=== PATIENT | female | born 1970 | race Caucasian/White ===

== ENCOUNTER 2016-12-05 06:47 | Day surgery (SDC) | payer BC ==
[2016-12-05] MEDS ORDERED: Lactated Ringers 1,000 ML IV SCH (07:00)
[2016-12-05] MEDS ORDERED: Sodium Chloride 0.9% 10 ML Syringe FLUSH PRN (07:00)
[2016-12-05] MEDS ORDERED: Lidocaine 1%/Sod Bicarbonate in NS 8.4% 1 ML Syringe PRN (07:00)
[2016-12-05] MEDS ORDERED: Midazolam 1 MG/ML 2 ML SDV ONE (07:27)
[2016-12-05] MEDS ORDERED: Propofol 200 MG/20 ML SDV ONE (07:27)
[2016-12-05] MEDS ORDERED: fentaNYL 250 MCG/5 ML SDV ONE (07:27)
[2016-12-05] MEDS ORDERED: Rocuronium 50 MG/5 ML Vial ONE (07:29)
[2016-12-05] MEDS ORDERED: Lidocaine 1% 4 ML ONE (07:30)
[2016-12-05] MEDS ORDERED: Scopolamine 1.5 MG Transdermal Patch TRDERM ONE (07:35)
--- NOTE | 2016-12-05 07:38 | PCM.PREANE ---
Preanesthetic Assessment - Procedure Proposed Procedure: Right thyroid lobectomy - Anesthesia/Transfusion/Family Hx Anesthesia History: Prior Anesthesia Reaction Type of Anesthesia Reaction: Excessive Nausea/Vomiting (scopalomine patch ordered ) Family History of Anesthesia Reaction: No Transfusion History: No Prior Transfusion(s) Intubation History: Unknown - Review of Systems General: No Symptoms Pulmonary: Shortness of Breath, Cough, Sputum Cardiovascular: Dyspnea on Exertion Gastrointestinal: No symptoms Neurological: No Symptoms Other: Reports: Thyroid Problems (past thyroidectomy due to nodules 2014) - Physical Assessment NPO Status Date: 12/05/16 NPO Status Time: 16:00 Pulse: 73 O2 Sat by Pulse Oximetry: 97 Respiratory Rate: 16 Blood Pressure: 116/72 Temperature: 36.8 C Height: 1.6 m Weight: 77.111 kg ASA Class: 3 Mental Status: Alert & Oriented x3 Airway Class: Mallampati = 2 Dentition: Reports: Missing Tooth/Teeth (poor dentition ), Caries Thyro-Mental Finger Breadths: 3 Mouth Opening Finger Breadths: 4 ROM/Head Extension: Full Lungs: Normal respiratory effort, Decreased breath sounds (diminished throughout ) Cardiovascular: Regular Rate, Regular Rhythm, No Murmurs - Lab Values: Laboratory Last Values Urine HCG, Qual Negative (NEGATIVE) 12/05/16 07:01 - Allergies Allergies/Adverse Reactions: Allergies Allergy/AdvReac Type Severity Reaction Status Date / Time Penicillins Allergy Mild Anaphylactic Verified 12/01/16 09:39 Shock tramadol Allergy Swelling Verified 12/01/16 09:39 codeine AdvReac Mild Nausea Verified 12/01/16 09:39 - Blood Blood Available: No - Anesthesia Plan Beta Jena: Atenolol (will take own dose) - Acknowledgements Anesthesia Type Planned: General Anesthesia Pt an Appropriate Candidate for the Planned Anesthesia: Yes Alternatives and Risks of Anesthesia Discussed w Pt/Guardian: Yes Pt/Guardian Understands and Agrees with Anesthesia Plan: Yes PreAnesthesia Questionnaire HEENT History: Reports: Allergic Rhinitis, Impaired Vision, Other (See Below) Other HEENT History: wears glasses Cardiovascular History: Reports: High Cholesterol, Hypertension Respiratory History: Reports: COPD Gastrointestinal History: Reports: GERD, Other (See Below) Other Gastrointestinal History: dysphagia Other OB/BYN History: bilateral lobectomy Musculoskeletal History: Reports: Arthritis, Other (See Below) Other Musculoskeletal History: osteopenia Neurological History: Reports: None Psychiatric History: Reports: Depression, Other (See Below) Other Psychiatric History: insomnia Endocrine/Metabolic History: Reports: Hypothyroidism, Other (See Below) Other Endocrine/Metabolic History: thyroid nodule Hematologic History: Reports: None Immunologic History: Reports: None Oncologic (Cancer) History: Reports: None Dermatologic History: Reports: None - Past Surgical History Head Surgeries/Procedures: Reports: None Other HEENT Surgeries/Procedures: partial thyroidectomy GI Surgical History: Reports: EGD Female Surgical History: Reports: Other (See Below) Other Female Surgeries/Procedures: Right breast ductectomy Endocrine Surgical History: Reports: Other (See Below) Other Endocrine Surgeries/Procedures: L thyroid lobectomy Other Musculoskeletal Surgeries/Procedures:: L4-l5 discectomy, laminectomy - SUBSTANCE USE Tobacco Use Within Last Twelve Months: Cigarettes (1/2 pack/ day) Second Hand Smoke Exposure: Yes Days Per Week of Alcohol Use: 1 Number of Drinks Per Day: 0 Total Drinks Per Week: 0 Recreational Drug Use History: No - HOME MEDS Home Medications: Home Meds Atenolol [Tenormin] 50 mg PO DAILY 01/11/14 [History] Hydrochlorothiazide 25 mg PO DAILY 01/11/14 [History] Levothyroxine Sodium [Levothyroxine Sodium] 112 mcg PO DAILY 05/19/15 [History] Lisinopril [Lisinopril] 60 mg PO DAILY 05/19/15 [History] Aspirin [Jarratt Aspirin] 81 mg PO DAILY 12/01/16 [History] Calcium Carbonate/Vitamin D3 [Calcium 600 + Vit D 400 Softgl] 1 tab PO DAILY [History] Cyanocobalamin (Vitamin B-12) [Vitamin B-12] 1,000 mcg PO DAILY 12/01/16 [ History] Denosumab [Prolia] 1 dose SQ ASDIRECTED 12/01/16 [History] Multivitamin [Multivitamins] 1 tab PO DAILY 12/01/16 [History] Omeprazole Magnesium [Prilosec Otc] 20 mg PO DAILY 12/01/16 [History] amLODIPine Besylate [Amlodipine Besylate] 5 mg PO DAILY 12/01/16 [History] atorvaSTATin Calcium [Atorvastatin Calcium] 10 mg PO DAILY 12/01/16 [History] - CURRENT (IN HOUSE) MEDS Current Meds: Current Medications Lactated Ringer's (Ringers, Lactated) 1,000 mls @ 125 mls/hr IV ASDIRECTED MAXIMINO Stop: 12/05/16 23:00 Lidocaine/Sodium Bicarbonate (Buffered Lidocaine 1% In Ns 8.4%) 0.25 ml .XX ONETIME PRN PRN Reason: Prior to IV Start Stop: 12/05/16 18:00 Sodium Chloride (Saline Flush) 10 ml FLUSH ASDIRECTED PRN PRN Reason: Keep Vein Open Stop: 12/05/16 18:00 Discontinued Medications Bupivacaine HCl/Epinephrine Bitart (Marcaine 0.5%/Epinephrine 1:200,000) Confirm Administered Dose 50 ml .ROUTE .STK-MED ONE Stop: 12/05/16 07:16 Fentanyl (Sublimaze) Confirm Administered Dose 250 mcg .ROUTE .STK-MED ONE Stop: 12/05/16 07:28 Lidocaine HCl (Xylocaine-Mpf 1%) Confirm Administered Dose 4 mls @ as directed .ROUTE .STK-MED ONE Stop: 12/05/16 07:31 Lidocaine/Epinephrine (Xylocaine 1% With Epinephrine 1:100,000) Confirm Administered Dose 20 ml .ROUTE .STK-MED ONE Stop: 12/05/16 07:16 Midazolam HCl (Versed 1 Mg/Ml) Confirm Administered Dose 2 mg .ROUTE .STK-MED ONE Stop: 12/05/16 07:28 Propofol (Diprivan 20 Ml) Confirm Administered Dose 200 mg .ROUTE .STK-MED ONE Stop: 12/05/16 07:28 Rocuronium Hemphill (Zemuron) Confirm Administered Dose 50 mg .ROUTE .STK-MED ONE Stop: 12/05/16 07:30
[2016-12-05] MEDS ORDERED: diphenhydrAMINE 50 MG/ML SDV IVPUSH PRN (07:52)
[2016-12-05] MEDS ORDERED: Ondansetron 4 MG/2 ML SDV IVPUSH PRN (07:52)
[2016-12-05] MEDS ORDERED: Meperidine PF 50 MG/ML Syringe IVPUSH PRN (07:52)
[2016-12-05] MEDS ORDERED: Albuterol 6.7 GM Inhaler INH ONE (08:24)
[2016-12-05] MEDS: Bupivacaine 0.5%/EPINEPHrine 1:200,000 50 ML MDV ONE ×2 (08:47→10:06)
[2016-12-05] MEDS: Lidocaine 1% with EPINEPHrine 1:100,000 20 ML MDV ONE ×2 (08:48→10:06)
[2016-12-05] MEDS ORDERED: Ondansetron 4 MG/2 ML SDV ONE (09:07)
[2016-12-05] MEDS ORDERED: ePHEDrine/Normal Saline 25 MG/5 ML Syringe ONE ×2 (09:07)
[2016-12-05] MEDS ORDERED: Dexamethasone 4 MG/ML SDV ONE (09:10)
[2016-12-05] MEDS ORDERED: Neostigmine Methylsulfate 1 MG/ML 5 ML Syringe ONE (09:10)
--- NOTE | 2016-12-05 10:24 | PCM.OPNOTE ---
- General Post-Op/Procedure Note Date of Surgery/Procedure: 12/05/16 Operative Procedure(s): rt thyroid lobectomy Pre Op Diagnosis: symptomatic rt thyroid nodule Post-Op Diagnosis: Same Anesthesia Technique: General ET tube Primary Surgeon: Viral Null EBL in mLs: 100 Condition: Good
[2016-12-05] MEDS: fentaNYL 100 MCG/2 ML SDV IVPUSH PRN ×3 (10:47→11:15)
[2016-12-05] MEDS ORDERED: HYDROmorphone 0.5 MG/0.5 ML Syringe ONE ×2 (10:49→12:02)
[2016-12-05] MEDS ORDERED: Acetaminophen 325 MG Tab PO ONE (10:53)
--- NOTE | 2016-12-05 10:53 | PCM.POSTAN ---
POST ANESTHESIA ASSESSMENT - MENTAL STATUS Mental Status: alert - VITAL SIGNS Pulse Rate: 88 SaO2: 99 Resp Rate: 12 Blood Pressure: 126/88 Temperature: 36.6 C - RESPIRATORY Respiratory Status: respiratory rate WNL, airway patent, O2 saturation stable, supplemental oxygen - CARDIOVASCULAR CV Status: pulse rate WNL, blood pressure stable - GASTROINTESTINAL GI Status: no symptoms - PAIN Pain Score: 5 (RN to treat in PACU ) - POST OP HYDRATION Hydration Status: adequate & stable
--- NOTE | 2016-12-05 11:29 | OR ---
DATE OF OPERATION: 12/05/2016 SURGEON: Viral Null MD PREOPERATIVE DIAGNOSIS: Symptomatic right thyroid nodule. POSTOPERATIVE DIAGNOSIS: Symptomatic right thyroid nodule. OPERATION PERFORMED: Right thyroid lobectomy. ANESTHESIA: Done under general anesthetic. ESTIMATED BLOOD LOSS: About 100 mL. DESCRIPTION OF PROCEDURE: The patient was taken to the operating room, placed in a supine position, connected to monitoring equipment, given a general anesthetic and intubated. Head was positioned with slight hyperextension. The neck, anterior chest, and mandible were prepped with Betadine scrubbing solution and draped off in a sterile fashion. Incision was made transversely in the lower neck, and the previous incision carried down by sharp dissection through the fat, through the platysmas, and then superior flap was developed. The midline was then incised sharply down to the trachea and then the strap muscles, which were scarred at this time, were taken off the surface of the thyroid gland. The thyroid gland was then rotated medially, and the middle thyroid vein was taken down between curved hemostats, cut and tied. The inferior thyroid veins in the lower pole thyroid were then taken down between curved hemostats, cut and tied. Loose tissue in the posterior part of the thyroid were then dissected. A nerve was identified going into the inferior thyroid artery. The small branches, inferior thyroid, ramifying on to the thyroid itself were taken down between right angles and tied with 3-0 Vicryl suture. The superior thyroid artery and vein were taken off the superior thyroid, and this allowed the rotation of the thyroid medially, allowing further dissection off the trachea, taking the attachments between curved hemostats, cutting and tying with 3-0 Vicryl suture. The thyroid gland was thus delivered for analysis. It consisted of right thyroid lobe. The area was irrigated and checked, excellent hemostasis, and 100 mL of blood loss was noted. This completed the procedure. The midline strap muscle was brought together with interrupted 3-0 Vicryl suture. The strap muscles and the platysma were brought together with interrupted 3-0 Vicryl suture, and the skin with a running subdermal 4-0 Dexon suture. Steri-Strips, sterile dressing placed. Marcaine infiltrated in the skin incision. The patient tolerated the procedure and sent to recovery room in a stable condition. MMODAL /[id number]
--- NOTE | 2016-12-05 12:02 | PCM48HPAN ---
Post Anesthesia Note - EVALUATION WITHIN 48HRS OF ANESTHETIC Vital Signs in Normal Range: Yes Patient Participated in Evaluation: Yes Respiratory Function Stable: Yes Airway Patent: Yes Cardiovascular Function Stable: Yes Hydration Status Stable: Yes Pain Control Satisfactory: Yes Nausea and Vomiting Control Satisfactory: Yes Mental Status Recovered: Yes
[2016-12-05] MEDS ORDERED: HYDROmorphone 0.5 MG/0.5 ML Syringe IVPUSH PRN (13:00)
[2016-12-05 14:02] VITALS: BP 114/78
== END 2016-12-05 13:55 | disposition home or self-care (01) ==
LOC: JD.SDS 06:47
PROVIDERS: ATTEND Surgery
DX: D34 Benign neoplasm of thyroid gland (principal); E89.0 Postprocedural hypothyroidism; I10 Essential (primary) hypertension; K21.9 Gastro-esophageal reflux disease without esophagitis; F32.9 Major depressive disorder, single episode, unspecified; F17.210 Nicotine dependence, cigarettes, uncomplicated; J44.9 Chronic obstructive pulmonary disease, unspecified; M81.0 Age-related osteoporosis without current pathological fracture; E78.2 Mixed hyperlipidemia; Z88.0 Allergy status to penicillin; Z88.6 Allergy status to analgesic agent; Z79.82 Long term (current) use of aspirin; Z79.899 Other long term (current) drug therapy; Z98.890 Other specified postprocedural states
CPT/HCPCS: 36415; 60220; 81025; 82310; 93005; A9270; J1100; J1170; J2250; J2405; J2710; J3010; J7050; J7120; 00320; J2704